=== PATIENT | female | born 1970 | race Caucasian/White ===

== ENCOUNTER 2017-05-09 06:56 | Day surgery (SDC) | payer OTHER ==
[~2017-05-09] VITALS: Ht 167.6 cm; Wt 113.4 kg
[2017-05-09] MEDS ORDERED: fentaNYL CITRATE/PF 100 MCG/2 ML AMP ONE (07:32)
[2017-05-09] MEDS ORDERED: MIDAZOLAM HCL 5 MG/5 ML VIAL ONE (07:33)
[2017-05-09] MEDS ORDERED: SIMETHICONE 40 MG/0.6 ML ML ONE (07:33)
[2017-05-09 07:38] LABS: HCG,QUAL RESULT NEGATIVE (NEGATIVE)
[2017-05-09] MEDS: fentaNYL CITRATE/PF 100 MCG/2 ML AMP ONE ×3 (08:03→08:07)
[2017-05-09] MEDS: MIDAZOLAM HCL 5 MG/5 ML VIAL ONE ×4 (08:03→08:12)
[2017-05-09] MEDS ORDERED: DIPHENHYDRAMINE INJ 50 MG/ML VIAL ONE (12:16)
[2017-05-09 12:22] VITALS: BP_SYST 132
== END 2017-05-09 10:00 | disposition home or self-care (01) ==
LOC: SDS 06:56 → SMU 07:09 → SDS 10:00
PROVIDERS: ATTEND Internal Medicine
DX: K90.0 Celiac disease (principal); K58.9 Irritable bowel syndrome, unspecified; D12.5 Benign neoplasm of sigmoid colon; Z86.010 Personal history of colon polyps; K21.9 Gastro-esophageal reflux disease without esophagitis; Z90.49 Acquired absence of other specified parts of digestive tract
CPT/HCPCS: 45380; 84703; 88305; J1200; J2250; J3010

== ENCOUNTER 2018-05-14 09:30 | Day surgery (SDC) | payer OTHER ==
[2018-05-14] MEDS ORDERED: SIMETHICONE 40 MG/0.6 ML ML ONE (09:50)
[2018-05-14 09:52] LABS: HCG,QUAL RESULT NEGATIVE (NEGATIVE)
[2018-05-14] MEDS: fentaNYL CITRATE/PF 100 MCG/2 ML AMP ONE ×3 (11:20→11:31)
[2018-05-14] MEDS: MIDAZOLAM HCL 5 MG/5 ML VIAL ONE ×4 (11:20→11:33)
[2018-05-14] MEDS ORDERED: DIPHENHYDRAMINE INJ 50 MG/ML VIAL ONE (13:20)
[2018-05-14 13:55] VITALS: BP_SYST 109
== END 2018-05-14 12:20 | disposition home or self-care (01) ==
LOC: SMU 09:30 → SDS 09:30
PROVIDERS: ATTEND Internal Medicine
DX: K29.50 Unspecified chronic gastritis without bleeding (principal); E66.9 Obesity, unspecified; K21.9 Gastro-esophageal reflux disease without esophagitis; Z79.899 Other long term (current) drug therapy; Z88.0 Allergy status to penicillin; Z68.41 Body mass index [BMI] 40.0-44.9, adult
CPT/HCPCS: 36415; 43239; 84703; 87081; 88305; 88312; 88313; J1200; J2250; J3010